=== PATIENT | female | born 1970 | race Caucasian/White ===

== ENCOUNTER 2022-03-26 08:33 | Outpatient (CLI) | payer BC | END 2022-03-26 08:34 | disposition home or self-care (01) | LOC: CSHMAMMO 08:33 | PROVIDERS: ATTEND Obstetrics & Gynecology | DX: Z12.31 Encounter for screening mammogram for malignant neoplasm of breast (principal); Z80.3 Family history of malignant neoplasm of breast | CPT/HCPCS: 77063; 77067 ==

== ENCOUNTER 2022-06-18 07:42 | Outpatient (CLI) | payer BC | END 2022-06-18 07:43 | disposition home or self-care (01) | LOC: CSHULT 07:42 | PROVIDERS: ATTEND Internal Medicine | DX: E80.6 Other disorders of bilirubin metabolism (principal) | CPT/HCPCS: 76705 ==

== ENCOUNTER 2023-05-11 10:59 | Outpatient (CLI) | payer BC | END 2023-05-11 11:00 | disposition home or self-care (01) | LOC: CSHMAMMO 10:59 | PROVIDERS: ATTEND Internal Medicine | DX: Z12.31 Encounter for screening mammogram for malignant neoplasm of breast (principal); Z80.3 Family history of malignant neoplasm of breast | CPT/HCPCS: 77063; 77067 ==

== ENCOUNTER 2024-06-12 14:27 | Outpatient (CLI) | payer BC | END 2024-06-12 14:28 | disposition home or self-care (01) | LOC: CSHMAMMO 14:27 | PROVIDERS: ATTEND Internal Medicine | DX: Z12.31 Encounter for screening mammogram for malignant neoplasm of breast (principal); Z80.3 Family history of malignant neoplasm of breast | CPT/HCPCS: 77063; 77067 ==